=== PATIENT | male | born 1965 | race Caucasian/White ===

== ENCOUNTER 2016-09-01 09:16 | Inpatient (IN) | payer BC ==
[~2016-09-01] VITALS: Ht 177.8 cm; Wt 94.8 kg
[2016-09-01] MEDS ORDERED: CEFAZOLIN 1 GM IVPB PREMIX 50 ML IV ONE (11:00)
[2016-09-01] MEDS ORDERED: IOHEXOL 50 ML IV ONE (11:45)
[2016-09-01] MEDS ORDERED: MEPERIDINE HCL/PF 100 MG/ML AMP IM ONE (12:06)
[2016-09-01] MEDS ORDERED: METOPROLOL TARTRATE 5 MG/5 ML VIAL IVP ONE (12:06)
[2016-09-01] MEDS ORDERED: NS IRRIG SOLN 1000 ML IR ONE (12:06)
[2016-09-01] MEDS ORDERED: LR 1,000 ML IV.SOLN IV ONE (12:06)
[2016-09-01] MEDS ORDERED: PROPOFOL 200MG/ 20ML VIAL (DIPRIVAN) IV ONE (12:06)
[2016-09-01] MEDS ORDERED: ROCURONIUM BROMIDE 10 MG/ML (ZEMURON) IV ONE (12:06)
[2016-09-01] MEDS ORDERED: ONDANSETRON HCL 4 MG/2 ML VIAL IVP ONE (12:06)
[2016-09-01] MEDS ORDERED: MIDAZOLAM HCL 5 MG/5 ML VIAL IVP ONE (12:06)
[2016-09-01] MEDS ORDERED: KETOROLAC TROMETHAMINE 30 MG VIAL IVP ONE (12:06)
[2016-09-01] MEDS ORDERED: SEVOFLURANE 15 MIN GAS INH ONE (12:06)
[2016-09-01] MEDS ORDERED: NS 1000 ML BAG IV ONE (12:06)
[2016-09-01] MEDS ORDERED: fentaNYL CITRATE/PF 100 MCG/2 ML AMP IVP ONE (12:06)
[2016-09-01] MEDS ORDERED: LR 1,000 ML IV SCH (13:12)
[2016-09-01] MEDS ORDERED: MEPERIDINE HCL/PF 25 MG/ML DISP.SYRIN IVP PRN ×2 (13:15)
[2016-09-01] MEDS ORDERED: ONDANSETRON HCL 4 MG/2 ML VIAL IVP PRN ×2 (13:15→15:30)
[2016-09-01] MEDS ORDERED: HYDROmorphone 2 MG/ML VIAL IVP PRN ×2 (13:15)
[2016-09-01] MEDS ORDERED: KETOROLAC TROMETHAMINE 30 MG VIAL IVP PRN (13:15)
[2016-09-01] MEDS ORDERED: HYDROmorphone 1 MG INJ. 1 MG/ML AMPUL IVP PRN ×2 (13:15→15:30)
[2016-09-01] MEDS ORDERED: HYDROcodone/ACETAMIN 5-325 MG TAB (NORCO/ VICODIN) PO PRN (15:30)
[2016-09-01] MEDS ORDERED: ACETAMINOPHEN 325 MG TABLET PO PRN (15:30)
[2016-09-01 15:56] LABS: HEMATOCRIT 33.6 % (36-54); HEMOGLOBIN 11.4 g/dL (14.0-18.0)
[2016-09-01 16:03] LABS: CALCIUM 7.5 mg/dL (8.4-11.0); CHLORIDE 100 mmol/L (98-107); CREATININE 0.91 mg/dL (0.55-1.30); GLUCOSE 141 mg/dL (70-99); POTASSIUM 3.2 mmol/L (3.5-5.1); SODIUM SERUM 133 mmol/L (136-145); UREA NITROGEN, BLOOD 12 mg/dL (8-21)
[2016-09-01 16:09] LABS: ANION GAP < 3 (5-15); GFR AFRICAN AMERICAN 114 mL/min (>90)
[2016-09-01] MEDS ORDERED: HYDROmorphone 1 MG INJ. 1 MG/ML AMPUL ONE (16:47)
[2016-09-01 17:10] VITALS: BP_SYST 143
[2016-09-01 17:14] VITALS: BP_SYST 143
[2016-09-01 17:54] VITALS: BP_SYST 143
[2016-09-01] MEDS: D5/0.45 NS 1,000 ML IV SCH (18:29)
[2016-09-01] MEDS ORDERED: LISI10TA5 PO (18:38)
[2016-09-01] MEDS ORDERED: HYDR25TA4 PO (18:38)
[2016-09-01] MEDS ORDERED: SIMV20TA2 PO (18:38)
[2016-09-01 19:00] VITALS: BP_SYST 128
[2016-09-01 20:00] VITALS: BP_SYST 128
[2016-09-01] MEDS: FAMOTIDINE PF 20 MG/2 ML VIAL IVP SCH (23:46)
[2016-09-01] MEDS: cefOXitin SODIUM 2 GM in D5W 100 ML IV SCH (23:46)
[2016-09-02] VITALS (7 sets, daily range): BP systolic 107–123
[2016-09-02] MEDS: D5/0.45 NS 1,000 ML IV SCH ×2 (01:21→06:00)
[2016-09-02 06:40] LABS: BASOPHILS % (AUTO) 0.2 % (0.0-2.0); EOSINOPHILS % (AUTO) 0.3 % (0.0-4.0); HEMATOCRIT 30.1 % (36-54); LYMPHOCYTES # (AUTO) 0.9 K/uL (1.0-5.5); LYMPHOCYTES % (AUTO) 10.1 % (20.5-51.5); MEAN CORPUSCULAR HEMOGLOBIN 29 pg (27-31); MEAN CORPUSCULAR HGB CONC 33 % (32-36); MEAN CORPUSCULAR VOLUME 87 fL (79.0-98.0); MONOCYTES # (AUTO) 0.8 K/uL (0.0-1.0); MONOCYTES % (AUTO) 8.8 % (1.7-9.3); NEUTROPHILS # (AUTO) 7.5 K/uL (1.8-7.7); NEUTROPHILS % (AUTO) 80.6 % (40.0-70.0); PLATELET COUNT (AUTO) 264 K/uL (130-430); RED BLOOD CELL COUNT(AUTO) 3.47 MIL/uL (4.2-6.2); RED CELL DISTRIBUTION WIDTH 13.1 % (9.0-15.0); WHITE BLOOD COUNT (AUTO) 9.2 K/uL (4.8-10.8)
[2016-09-02 06:54] LABS: ALBUMIN 2.3 g/dL (3.4-4.8); CALCIUM 7.5 mg/dL (8.4-11.0); CREATININE 0.95 mg/dL (0.55-1.30); POTASSIUM 3.1 mmol/L (3.5-5.1); TOTAL BILIRUBIN 0.4 mg/dL (0.0-1.0); TOTAL PROTEIN, SERUM 5.8 g/dL (6.4-8.3)
[2016-09-02] MEDS: FAMOTIDINE PF 20 MG/2 ML VIAL IVP SCH ×2 (09:16→20:20)
[2016-09-02] MEDS: ENOXAPARIN SODIUM 30 MG/0.3 ML SYRINGE SUBCUT SCH (09:17)
[2016-09-02] MEDS: HYDROcodone/ACETAMIN 5-325 MG TAB (NORCO/ VICODIN) PO PRN ×3 (09:18→20:22)
[2016-09-02] MEDS: cefOXitin SODIUM 2 GM in D5W 100 ML IV SCH (09:19)
[2016-09-03] MEDS: D5/0.45 NS 1,000 ML IV SCH (03:37)
[2016-09-03] MEDS: HYDROcodone/ACETAMIN 5-325 MG TAB (NORCO/ VICODIN) PO PRN ×2 (03:46→12:12)
[2016-09-03 06:43] LABS: ALBUMIN 2.3 g/dL (3.4-4.8); CREATININE 1.08 mg/dL (0.55-1.30); POTASSIUM 3.1 mmol/L (3.5-5.1); TOTAL BILIRUBIN 1.2 mg/dL (0.0-1.0); TOTAL PROTEIN, SERUM 6.1 g/dL (6.4-8.3)
[2016-09-03 06:48] LABS: BASOPHILS % (AUTO) 0.4 % (0.0-2.0); EOSINOPHILS # (AUTO) 0.3 K/uL (0.0-0.4); HEMATOCRIT 26.7 % (36-54); LYMPHOCYTES # (AUTO) 1.3 K/uL (1.0-5.5); LYMPHOCYTES % (AUTO) 19.2 % (20.5-51.5); MEAN CORPUSCULAR HEMOGLOBIN 29 pg (27-31); MEAN CORPUSCULAR HGB CONC 34 % (32-36); MEAN CORPUSCULAR VOLUME 87 fL (79.0-98.0); MONOCYTES # (AUTO) 0.5 K/uL (0.0-1.0); MONOCYTES % (AUTO) 7.7 % (1.7-9.3); NEUTROPHILS # (AUTO) 4.7 K/uL (1.8-7.7); NEUTROPHILS % (AUTO) 68.7 % (40.0-70.0); PLATELET COUNT (AUTO) 257 K/uL (130-430); RED BLOOD CELL COUNT(AUTO) 3.08 MIL/uL (4.2-6.2); RED CELL DISTRIBUTION WIDTH 12.9 % (9.0-15.0); WHITE BLOOD COUNT (AUTO) 6.8 K/uL (4.8-10.8)
[2016-09-03] MEDS ORDERED: POTASSIUM CHLORIDE 40 MEQ in NS 250 ML IV ONE (09:15)
[2016-09-03] MEDS: FAMOTIDINE PF 20 MG/2 ML VIAL IVP SCH (09:58)
[2016-09-03] MEDS: ENOXAPARIN SODIUM 30 MG/0.3 ML SYRINGE SUBCUT SCH (09:59)
[2016-09-03 12:00] VITALS: BP_SYST 121
[2016-09-03 12:55] VITALS: BP_SYST 132
[2016-09-03 16:31] VITALS: BP_SYST 110
== END 2016-09-03 12:19 | disposition home or self-care (01) | DRG 416 ==
LOC: SDS 09:16 → SMU 15:24 → SDS 15:24 → SMU 15:35
PROVIDERS: ADMIT Internal Medicine; ATTEND Internal Medicine
PROC: 0FJ44ZZ Inspection of Gallbladder, Percutaneous Endoscopic Approach (ICD-10-PCS; 2016-09-01)
PROC: 3E0T3BZ Introduction of Anesthetic Agent into Peripheral Nerves and Plexi, Percutaneous Approach (ICD-10-PCS; 2016-09-01)
PROC: 0FT40ZZ Resection of Gallbladder, Open Approach (ICD-10-PCS; principal; 2016-09-01 12:00)
DX: K80.12 Calculus of gallbladder with acute and chronic cholecystitis without obstruction (principal); I10 Essential (primary) hypertension; G47.33 Obstructive sleep apnea (adult) (pediatric); Z53.31 Laparoscopic surgical procedure converted to open procedure
CPT/HCPCS: 36415; 80048; 80053; 85018-TC; 85025; 86886; 86900; 86901; 88304; 94010; 94760; 97116-GP; C1727; C1758; J0690; J0694; J1170; J1650; J1885; J2175; J2250; J2405; J2704; J3010; J3480; J3490; J7030; J7050; J7060; J7120; Q9967